=== PATIENT | male | born 1970 | race Caucasian/White ===

== ENCOUNTER 2020-07-07 15:33 | Outpatient (RCR) | payer OTHER, SELFPAY ==
[2020-07-07] MEDS: COVID-19 VACC, MRNA(PFIZER)/PF 30 MCG/0.3 ML SYRINGE IM (08:57)
[2020-07-28] MEDS: COVID-19 VACC, MRNA(PFIZER)/PF 30 MCG/0.3 ML SYRINGE IM (08:56)
== END 2020-07-07 23:59 ==
LOC: IMMUN 15:33
PROVIDERS: PCP Family Medicine; Visit Provider Family Medicine
DX: Z23 Encounter for immunization (principal)
CPT/HCPCS: 0001A; 0002A; 91300

== ENCOUNTER 2024-02-20 16:18 | Emergency (ER) | payer BC, SELFPAY ==
[2024-02-20 16:19] VITALS: BP 169/108; PULSE 74; RESP 18; TEMP 36.3; O2SAT 100; BMI 37.8
[2024-02-20 20:20] VITALS: BP 134/87; PULSE 78; O2SAT 96
[2024-02-20] MEDS: Diphth,Pertuss(Acell),Tet Vac 0.5 ML Vial IM (20:45)
[2024-02-20] MEDS: Lidocaine 1% /Epi 1:100 (20ml) 20 ML Vial 3 ML INFILT (20:45)
--- NOTE | 2024-02-20 21:07 | EDS_ITS ---
HPI <XENIA Chávez - Last Filed: 02/20/24 21:17> History of Present Illness Chief Complaint: Laceration Narrative Narrative: patient is a 53-year-old male who presents to the emergency department with a laceration to the right hand. 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 Patient has a 2.5 cm laceration to the right hand on the palmar aspect. Patient has full range of motion. Tetanus vaccination unknown. PFS <XENIA Chávez - Last Filed: 02/20/24 21:17> [facility] Medical History (Updated 02/20/24 @ 21:12 by XENIA Chávez) Hypertension Allergy/AdvReac Type Severity Reaction Status Date / Time No Known Allergies Allergy Verified 02/20/24 16:19 Family History no significant family his Social History Smoking Status: Never smoker ROS <XENIA Chávez - Last Filed: 02/20/24 21:17> ROS ED ROS Narrative Constitutional: Negative for fever, chills, weight loss, weakness Eyes: Negative for vision loss, vision change, double vision ENT: Negative for any sore throat, ear pain, congestion Cardiovascular: Negative for any chest pain, tightness, palpitations Respiratory: Negative for any cough, sputum production, hemoptysis, dyspnea, dyspnea on exertion, orthopnea Gastrointestinal: Negative for any abdominal pain, nausea, vomiting, diarrhea, constipation, blood in stool, blood in vomit : Negative for any urinary frequency, dysuria, retention, blood in urine Muscle skeletal: Negative for any neck pain, back pain Neurological: Negative for any headache, syncope, dizziness Skin: Negative for any rashes, itching, abrasions. Positive for laceration of the right hand Psychiatric: Negative for any depression, anxiety, stress, suicidal ideation, homicidal ideation Hematologic: Negative for any excessive bruising, easy bleeding EXAM <XENIA Chávez - Last Filed: 02/20/24 21:17> Physical Exam Narrative Exam Narrative: Vital signs reviewed. Extremities: No peripheral edema, no signs of gross trauma or deformity. Active full range of motion of all extremities. Patient has a horizontal 2.5 cm laceration to the palmar aspect of the right hand. This laceration is on the palmar aspect just below the right fifth finger. Full range of motion. This is a full-thickness wound, no evidence of any tendon involvement. Patient is able to flex and extend without difficulty, against resistance. Neuro: Cranial nerves II through XII intact, no focal neurological deficits. Skin: Clean dry and intact with no rash, purpura, petechiae, vesicles or pustules. Backs/flank: No CVA tenderness, no midline spinal tenderness, no deformity. Psych: Normal mood and affect. No SI, HI or acute psychosis. Const Vital Signs: 02/20/24 16:19 02/20/24 20:20 Temperature 97.3 F L Temperature Source Temporal Pulse Rate 74 78 Respiratory Rate 18 Blood Pressure 169/108 H 134/87 H Blood Pressure Mean 128 102 Pulse Ox 100 96 Oxygen Delivery Method Room Air Positive well nourished and well developed General Appearance ED: well developed <Dr. Elieser Velázquez DO - Last Filed: 02/20/24 22:06> Physical Exam Const Vital Signs: 02/20/24 16:19 02/20/24 20:20 Temperature 97.3 F L Temperature Source Temporal Pulse Rate 74 78 Respiratory Rate 18 Blood Pressure 169/108 H 134/87 H Blood Pressure Mean 128 102 Pulse Ox 100 96 Oxygen Delivery Method Room Air MDM <XENIA Chávez - Last Filed: 02/20/24 21:17> [facility] Treatment and Re-Evaluation :: Differential diagnosis includes however is not limited to: Foreign body, simple laceration, tendon laceration Patient appears generally well, vital signs are stable, patient is nontoxic- appearing. Presenting to the emergency department with complaints of hand laceration that occurred from a glass speaker. Tetanus vaccination will be up-to-date. Patient did have a horizontal 2.5 cm laceration to the palmar aspect of the hand. This was anesthetized with lidocaine with epinephrine. There is no evidence of any tendon involvement, patient full range of motion. Area was cleansed with 200 cc of normal saline. 6 simple interrupted sutures of 4-0 Ethilon were used. Patient will have these removed in 10 days. Patient is agreeable with this plan, patient stable for discharge. <Dr. Elieser Velázquez DO - Last Filed: 02/20/24 22:06> [facility] History & Record Review Discussion w/independent historian: Patient Treatment and Re-Evaluation :: Differential diagnosis includes however is not limited to: Foreign body, simple laceration, tendon laceration Patient appears generally well, vital signs are stable, patient is nontoxic- appearing. Presenting to the emergency department with complaints of hand laceration that occurred from a glass speaker. Tetanus vaccination will be up-to-date. Patient did have a horizontal 2.5 cm laceration to the palmar aspect of the hand. This was anesthetized with lidocaine with epinephrine. There is no evidence of any tendon involvement, patient full range of motion. Area was cleansed with 200 cc of normal saline. 6 simple interrupted sutures of 4-0 Ethilon were used. Patient will have these removed in 10 days. Patient is agreeable with this plan, patient stable for discharge. I have personally performed a face to face assessment of the patient and have reviewed the MANE Note. I performed a substantive portion of the visit including all aspects of the following. My avina findings include: History is 53-year-old male presenting to the emergency room with right hand laceration. Patient sustained laceration from a broken beaker. He notes some numbness distally but wonders if that is from holding his hand firmly as pressure. Exam is there is a laceration over the medial palmar aspect near the fifth MCP region. Tendon function is normal. On my examination the patient is already had a digital block. Medical Decison Making wound care by nurse practitioner. I spoke with the patient that if he continues to have decreased sensation he can follow-up with hand but at the current time I cannot do 2 point discrimination. Patient notes understanding. Wound care discussed with patient. Tetanus updated. Discharge Plan Triage Chief Complaint: Laceration ED Midlevel Provider: Patrick Hudson ED Provider: Elieser Velázquez Dx/Rx/DC Orders Clinical Impression: Hand laceration Instructions: ED Laceration, All Closures, ED Hand Laceration Nerve Injury Primary Care Provider: Lynette Recinos Referrals: Lynette Recinos MD [Primary Care Provider] - Hector Hamlin MD [Med Staff - Active Staff] - Activity Restrictions/Additional Instructions: Please have your sutures removed in 7 to 10 days. You may follow-up if you continue to have the numbness and tingling. Keep clean and dry. Remember to cover for the next 2 to 3 days. Return for any worsening symptoms. Print Language: Liberian Disposition Disposition: Home, Self Care Discharge Date/Time: 02/20/24 21:22
== END 2024-02-20 21:22 | disposition home or self-care (01) ==
PROVIDERS: Emergency Provider Emergency Medicine; PCP Family Medicine; Visit Provider Emergency Medicine
DX: S61.419A Laceration without foreign body of unspecified hand, initial encounter (principal); W25.XXXA Contact with sharp glass, initial encounter
CPT/HCPCS: 12001; 90715; 99282